=== PATIENT | male | born 1955 | race Caucasian/White ===

== ENCOUNTER 2016-05-02 10:16 | Inpatient (IN) | payer OTHER ==
[2016-05-02 10:29] VITALS: BMI 25.8
--- NOTE | 2016-05-02 12:10 | HP ---
COWS - Scale Resting Pulse: 0= [place] 80 or Below Sweatin=Flushed/Facial Moisture Restless Observation: 1= Difficult to Sit Still Pupil Size: 0= Normal to Room Light Bone or Joint Aches: 2= Severe Diffuse Aches Runny Nose/ Eye Tearin= Runny Nose/Eyes GI Upset > 30mins: 2= Nausea/Diarrhea Tremor Observation: 2= Slight Tremor Visible Yawning Observation: 2= >3x During Session Anxiety or Irritability: 2=Irritable/Anxious Goose Flesh Skin: 3=Piloerection COWS Score: 18 Admission ROS S - HPI Chief Complaint: I am here to detox. Allergies/Adverse Reactions: Allergies Allergy/AdvReac Type Severity Reaction Status Date / Time No Known Allergies Allergy Verified 05/02/16 11:06 History of Present Illness: pt is a 60yr old male with a history of heroin dependence seeking detox for treatment. Exam Limitations: No Limitations - Ebola screening Have you traveled outside of the country in the last 21 days: No Have you had contact with anyone from an Ebola affected area: No Have you been sick,other than usual withdrawal symptoms: No Do you have a fever: No - Review of Systems Constitutional: Chills, Diaphoresis, Loss of Appetite, Night Sweats, Changes in sleep, Unintentional Wgt. Loss EENT: reports: Tearing, Nose Congestion Respiratory: reports: No Symptoms reported Cardiac: reports: No Symptoms Reported, Lightheadedness GI: reports: Constipated, Poor Appetite, Poor Fluid Intake, Indigestion : reports: No Symptoms Reported Musculoskeletal: reports: Back Pain Integumentary: reports: Flushing, Sweating Neuro: reports: Headache, Tingling, Tremors Endocrine: reports: Excessive Sweating, Flushing, Intolerance to Cold, Intolerance to Heat Hematology: reports: No Symptoms Reported Psychiatric: reports: Judgement Intact, Mood/Affect Appropiate, Orientated x3, Agitated, Anxious Other Systems: Reviewed and Negative Patient History - Patient Medical History Hx Anemia: No Hx Asthma: No Hx Chronic Obstructive Pulmonary Disease (COPD): No Hx Cardiac Disorders: No Hx Hypertension: No Hx Hypercholesterolemia: No Hx Pacemaker: No HX Cerebrovascular Accident: No Hx Seizures: No Hx Dementia: No Hx Diabetes: No Hx Gastrointestinal Disorders: No Hx Liver Disease: No Hx Genitourinary Disorders: No Hx Sexually Transmitted Disorders: No Hx Renal Disease (ESRD): No Hx Thyroid Disease: No Hx Human Immunodeficiency Virus (HIV): No (NEGATIVE HX) Hx Hepatitis C: Yes (received treatment years ago. undetecable) Hx Depression: No Hx Suicide Attempt: No (denies) Hx Bipolar Disorder: No Hx Schizophrenia: No - Patient Surgical History Past Surgical History: Yes Hx Neurologic Surgery: No Hx Cataract Extraction: No Hx Cardiac Surgery: No Hx Lung Surgery: No Hx Breast Surgery: No Hx Breast Biopsy: No Hx Abdominal Surgery: No Hx Appendectomy: No Hx Cholecystectomy: No Hx Genitourinary Surgery: No Hx Section: No Hx Orthopedic Surgery: No Other Surgical History: R knee ACL repair 15 yrs ago. Anesthesia Reaction: No - PPD History Previous Implant?: Yes Documented Results: Negative w/o proof Implanted On Prior [facility] Admission?: Yes PPD to be Administered?: Yes - Reproductive History Patient is a Female of Child Bearing Age (11 -55 yrs old): No - Smoking Cessation Smoking history: Former smoker Have you smoked in the past 12 months: No If you are a former smoker, when did you quit?: 36 yrs ago Hx Chewing Tobacco Use: No Initiated information on smoking cessation: No - Substance & Tx. History Hx Alcohol Use: No Hx Substance Use: Yes Substance Use Type: Heroin Hx Substance Use Treatment: Yes - Substances Abused Heroin Route: Inhalation Frequency: Daily Amount used: 8-10 bags Age of first use: 58 Date of Last Use: 05/02/16 Family Disease History - Family Disease History Family Disease History: Diabetes: Mother (), Other: Father (HTN- ) Admission Physical Exam S - Vital Signs Vital Signs: Vital Signs - 24 hr 05/02/16 10:26 Temperature 96.5 F L Pulse Rate 66 Respiratory 18 Rate Blood Pressure 103/62 - Physical General Appearance: Yes: Appropriately Dressed, Tremorous, Irritable, Sweating, Anxious HEENTM: Yes: Normal Voice Respiratory: Yes: Lungs Clear, Normal Breath Sounds, No Respiratory Distress Neck: Yes: No masses,lesions,Nodules Breast: Yes: Within Normal Limits Cardiology: Yes: Regular Rhythm, Regular Rate, S1, S2 Abdominal: Yes: Normal Bowel Sounds, Non Tender, Soft Genitourinary: Yes: Within Normal Limits Back: Yes: Normal Inspection Musculoskeletal: Yes: full range of Motion Extremities: Yes: Normal Capillary Refill, Normal Inspection, Non-Tender, Tremors Neurological: Yes: Fully Oriented, Alert, Normal Response Integumentary: Yes: Normal Color, Diaphoresis Lymphatic: Yes: Within Normal Limits - Diagnostic (1) Hepatitis C Current Visit: Yes Status: Chronic Qualifiers: Viral hepatitis chronicity: chronic Hepatic coma status: without hepatic coma Qualified Code(s): B18.2 - Chronic viral hepatitis C (2) Hypercholesterolemia Current Visit: Yes Status: Chronic (3) Hypertension Current Visit: Yes Status: Chronic Qualifiers: Hypertension type: essential hypertension Qualified Code(s): I10 - Essential (primary) hypertension (4) Opioid dependence with withdrawal Current Visit: Yes Status: Chronic Cleared for Admission [facility] - Detox or Rehab [facility] Level of Care: Medically Managed Detox Regimen/Protocol: Methadone [facility] Breath Alcohol Content Breath Alcohol Content: 0 Urine Drug Screen - Results Drug Screen Negative: No Urine Drug Screen Results: OPI-Opiates, MDMA-Ecstasy, OXY-Oxycodone
[2016-05-02] MEDS ORDERED: hydrOXYzine PAMOATE 50 MG CAPSULE (FP) PO PRN (12:19)
[2016-05-02] MEDS ORDERED: MAGNESIUM CITRATE 300 ML BOTTLE PO PRN (12:19)
[2016-05-02] MEDS ORDERED: P-EPHED 60MG/TRIPROLIDI 2.5MG TABLET PO PRN (12:19)
[2016-05-02] MEDS ORDERED: LOPERAMIDE HCL 2 MG CAPSULE PO PRN (12:19)
[2016-05-02] MEDS ORDERED: MAG HYDROX/AL HYDROX/SIMETH 30 ML UNIT-DOSE CUP PO PRN (12:19)
[2016-05-02] MEDS ORDERED: ACETAMINOPHEN 325 MG TABLET (FP) PO PRN (12:19)
[2016-05-02] MEDS ORDERED: MAGNESIUM HYDROX 2400MG/30ML ORAL SUSPENSION 30 ML CUP PO PRN (12:19)
[2016-05-02] MEDS ORDERED: IBUPROFEN 400 MG TABLET (FP) PO PRN (12:19)
[2016-05-02] MEDS ORDERED: MENTHOL/PHENOL 1 EACH UD MM PRN (12:19)
[2016-05-02] MEDS ORDERED: guaiFENesin/D-METHORPHAN HB 10 ML UNIT-DOSE CUPS PO PRN (12:19)
[2016-05-02] MEDS ORDERED: METHADONE HCL 10 MG TABLET (FOR DETOX USE ONLY) PO ONE ×2 (12:25→23:00)
[2016-05-02] MEDS: diazePAM 5 MG TABLET PO PRN ×3 (13:34→22:09)
[2016-05-02 16:30] LABS: URINE APPEARANCE CLEAR; URINE BILIRUBIN NEGATIVE (NEGATIVE); URINE BLOOD NEGATIVE (NEGATIVE); URINE COLOR YELLOW; URINE GLUCOSE (UA) 2+ (NEGATIVE); URINE KETONE NEGATIVE (NEGATIVE); URINE LEUK ESTERASE NEGATIVE (NEGATIVE); URINE NITRITE NEGATIVE (NEGATIVE); URINE PROTEIN NEGATIVE (NEGATIVE); URINE UROBILINOGEN NEGATIVE E.U./dl (0.2-1.0)
[2016-05-02] MEDS: THIAMINE HCL 100 MG TABLET (FP) PO SCH (22:08)
[2016-05-02] MEDS: diphenhydrAMINE HCL 50 MG CAPSULE PO PRN (22:09)
[2016-05-03] MEDS: diazePAM 5 MG TABLET PO PRN ×5 (04:22→23:10)
--- NOTE | 2016-05-03 08:52 | PN ---
BHS COWS - Scale Resting Pulse: 0= [place] 80 or Below Sweatin=Flushed/Facial Moisture Restless Observation: 1= Difficult to Sit Still Pupil Size: 0= Normal to Room Light Bone or Joint Aches: 2= Severe Diffuse Aches Runny Nose/ Eye Tearin= Runny Nose/Eyes GI Upset > 30mins: 2= Nausea/Diarrhea Tremor Observation of Outstretched Hands: 2= Slight Tremor Visible Yawning Observation: 1= 1-2x During Session Anxiety or Irritability: 2=Irritable/Anxious Goose Flesh Skin: 0=Smooth Skin COWS Score: 14 BHS Progress Note (SOAP) Subjective: sweating,anxiety,tremors,interrupted sleep,restless,muscle aches.Pt. has hx. of HTN & was on lisinopril Objective: 05/03/16 08:50 Vital Signs - 8 hr 05/03/16 05/03/16 03:37 06:20 Temperature 96.7 F L Pulse Rate 65 Respiratory 18 18 Rate Blood Pressure 144/88 Laboratory Tests 05/02/16 13:00 Urine Color Yellow Urine Appearance Clear Urine pH 7.0 Ur Specific [place] 1.017 Urine Protein Negative Urine Glucose (UA) 2+ H Urine Ketones Negative Urine Blood Negative Urine Nitrite Negative Urine Bilirubin Negative Urine Urobilinogen Negative Ur Leukocyte Esterase Negative u/a noted Assessment: 05/03/16 08:51 withdrawal sx. Plan: continue detox start lisinopril
[2016-05-03 09:20] LABS: ALBUMIN 3.7 g/dl (3.4-5.0); CALCIUM 9.3 mg/dL (8.5-10.1)
[2016-05-03 09:21] LABS: MCH 31.7 pg (25.7-33.7); MCHC 33.8 g/dl (32.0-35.9); MEAN CELL VOLUME 93.8 fl (80-96); MEAN PLT VOLUME 8.7 fl (7.5-11.1); PLATELET COUNT 292 K/MM3 (134-434); RDW 13.2 % (11.9-15.9)
[2016-05-03 09:23] LABS: BILIRUBIN,TOTAL 0.3 mg/dL (0.2-1.0); CREATININE 1.4 mg/dL (0.7-1.3); TOT PROT 6.9 g/dl (6.4-8.2)
[2016-05-03] MEDS ORDERED: METHADONE HCL 10 MG TABLET (FOR DETOX USE ONLY) PO ONE (10:00)
[2016-05-03] MEDS: LISINOPRIL 10 MG TABLET (FP) PO SCH (10:03)
[2016-05-03] MEDS: PRENATAL VITAMINS W/ FOLIC ACID TABLET (FP) PO SCH (10:03)
--- NOTE | 2016-05-03 10:50 | EKG ---
Test Reason : Blood Pressure : / mmHG Vent. Rate : 056 BPM Atrial Rate : 056 BPM P-R Int : 186 ms QRS Dur : 088 ms QT Int : 414 ms P-R-T Axes : 043 055 034 degrees QTc Int : 399 ms SINUS BRADYCARDIA EARLY REPOLARIZATION NO PREVIOUS ECGS AVAILABLE Confirmed by BROCK GANNON MD ([id number]) on 05/03/2016 10:49:26 AM Referred By: Minesh Quisep Confirmed By:BROCK GANNON MD
[2016-05-03] MEDS: diphenhydrAMINE HCL 50 MG CAPSULE PO PRN (22:17)
[2016-05-03] MEDS: THIAMINE HCL 100 MG TABLET (FP) PO SCH (22:17)
[2016-05-04] MEDS: diazePAM 5 MG TABLET PO PRN (04:25)
[2016-05-04 06:41] VITALS: BP 155/97; PULSE 74; TEMP 96.5
--- NOTE | 2016-05-04 08:44 | PN ---
S Progress Note Note: patient does not want to stay to completed detox because of family issues, advised of risksof signing out AMA and relapse/od and . patient will sign out ama.
--- NOTE | 2016-05-04 08:45 | DS ---
[facility] Detox Discharge Summary Admission Date: 05/02/16 Discharge Date: 05/04/16 - History Present History: Opioid Dependence Pertinent Past History: hep c +, anxiety, depression and insomnia - Physical Exam Results Vital Signs: Vital Signs Temperature 96.5 F L 05/04/16 06:40 Pulse Rate 74 05/04/16 06:40 Respiratory Rate 18 05/04/16 06:40 Blood Pressure 155/97 05/04/16 06:40 O2 Sat by Pulse Oximetry (%) Pertinent Admission Physical Exam Findings: withdrawawl sx - Treatment Hospital Course: Detox Protocol Followed - Medication Discharge Medications: Ambulatory Orders NK [No Known Home Medication] 01/19/16 - Diagnosis (1) Hepatitis C Current Visit: Yes Status: Chronic Qualifiers: Viral hepatitis chronicity: chronic Hepatic coma status: without hepatic coma Qualified Code(s): B18.2 - Chronic viral hepatitis C (2) Opioid dependence with withdrawal Current Visit: Yes Status: Chronic - AMA Did Patient Leave Against Medical Advice: Yes
[2016-05-04] MEDS: PRENATAL VITAMINS W/ FOLIC ACID TABLET (FP) PO SCH (09:46)
[2016-05-04] MEDS: LISINOPRIL 10 MG TABLET (FP) PO SCH (09:46)
[2016-05-04] MEDS ORDERED: METHADONE HCL 5 MG TABLET (FOR DETOX USE ONLY) PO ONE (10:00)
[2016-05-05] MEDS ORDERED: METHADONE HCL 5 MG TABLET (FOR DETOX USE ONLY) PO ONE (10:00)
[2016-05-06] MEDS ORDERED: METHADONE HCL 10 MG TABLET (FOR DETOX USE ONLY) PO ONE (10:00)
[2016-05-07] MEDS ORDERED: METHADONE HCL 5 MG TABLET (FOR DETOX USE ONLY) PO ONE (06:00)
== END 2016-05-04 09:45 | disposition left against medical advice (07) | DRG 770 ==
LOC: YASAS 10:16 → Y3N 11:47
PROVIDERS: ADMIT Internal Medicine; ATTEND Internal Medicine
PROC: HZ2ZZZZ Detoxification Services for Substance Abuse Treatment (ICD-10-PCS; principal; 2016-05-04)
DX: F11.23 Opioid dependence with withdrawal (principal); B18.2 Chronic viral hepatitis C; I10 Essential (primary) hypertension; E78.00 Pure hypercholesterolemia, unspecified
CPT/HCPCS: 36415; 80053; 81003; 85027; 86593; 93005; 93010

== ENCOUNTER 2016-06-21 10:49 | Inpatient (IN) | payer OTHER ==
[2016-06-21 11:52] VITALS: BMI 27.1
--- NOTE | 2016-06-21 16:25 | HP ---
COWS - Scale Resting Pulse: 0= [place] 80 or Below Sweatin=Flushed/Facial Moisture Restless Observation: 3= Extraneous Movement Pupil Size: 2= Moderately Dilated Bone or Joint Aches: 2= Severe Diffuse Aches Runny Nose/ Eye Tearin= Runny Nose/Eyes GI Upset > 30mins: 3= Vomiting/Diarrhea Tremor Observation: 2= Slight Tremor Visible Yawning Observation: 2= >3x During Session Anxiety or Irritability: 2=Irritable/Anxious Goose Flesh Skin: 0=Smooth Skin COWS Score: 20 Admission ROS S - HPI Chief Complaint: i need help to stop using heroin Allergies/Adverse Reactions: Allergies Allergy/AdvReac Type Severity Reaction Status Date / Time No Known Allergies Allergy Verified 06/21/16 13:26 History of Present Illness: this 60 years old male with heroin dependence,withdrawal y=symptom,last detox to 05/04/16 anxiety anson loss longest period of sobriety 15 years Exam Limitations: No Limitations - Ebola screening Have you traveled outside of the country in the last 21 days: No (N) Have you had contact with anyone from an Ebola affected area: No Have you been sick,other than usual withdrawal symptoms: No Do you have a fever: No - Review of Systems Constitutional: Chills, Diaphoresis, Loss of Appetite, Malaise, Night Sweats, Changes in sleep, Weakness, Unintentional Wgt. Loss EENT: reports: Tearing, Nose Congestion Respiratory: reports: No Symptoms reported Cardiac: reports: No Symptoms Reported GI: reports: Diarrhea, Nausea, Vomiting, Abdominal cramping : reports: No Symptoms Reported Musculoskeletal: reports: Back Pain, Joint Pain, Muscle Pain, Joint Stiffness Integumentary: reports: Dryness Neuro: reports: Headache, Tremors Endocrine: reports: No Symptoms Reported Hematology: reports: No Symptoms Reported Psychiatric: reports: Anxious Patient History - Patient Medical History Hx Anemia: No Hx Asthma: No Hx Chronic Obstructive Pulmonary Disease (COPD): No Hx Cardiac Disorders: No Hx Hypertension: Yes (on meds) Hx Hypercholesterolemia: No Hx Pacemaker: No HX Cerebrovascular Accident: No Hx Seizures: No Hx Dementia: No Hx Diabetes: No Hx Gastrointestinal Disorders: No Hx Liver Disease: No Hx Genitourinary Disorders: No Hx Sexually Transmitted Disorders: No Hx Renal Disease (ESRD): No Hx Thyroid Disease: No Hx Human Immunodeficiency Virus (HIV): No (NEGATIVE HX last 2015) Hx Hepatitis C: Yes (received treatment years ago. undetecable) Hx Depression: No Hx Suicide Attempt: No Hx Bipolar Disorder: No Hx Schizophrenia: No Other Medical History: no suicidal,no homicidal - Patient Surgical History Past Surgical History: Yes Hx Neurologic Surgery: No Hx Cataract Extraction: No Hx Cardiac Surgery: No Hx Lung Surgery: No Hx Breast Surgery: No Hx Breast Biopsy: No Hx Abdominal Surgery: No Hx Appendectomy: No Hx Cholecystectomy: No Hx Genitourinary Surgery: No Hx Section: No Hx Orthopedic Surgery: Yes (right knee) Other Surgical History: R knee ACL repair 15 yrs ago. Anesthesia Reaction: No - PPD History Previous Implant?: Yes Documented Results: Negative w/proof Implanted On Prior [facility] Admission?: Yes Date: 05/04/16 Results: 0 mm PPD to be Administered?: No - Smoking Cessation Smoking history: Former smoker Have you smoked in the past 12 months: No If you are a former smoker, when did you quit?: 36 yrs ago Hx Chewing Tobacco Use: No Initiated information on smoking cessation: No 'Breaking Loose' booklet given: 06/21/16 - Substance & Tx. History Hx Alcohol Use: No Hx Substance Use: Yes Substance Use Type: Heroin Hx Substance Use Treatment: Yes ([facility] 05/02/16 to 05/04/16) - Substances Abused Heroin Route: Inhalation Frequency: Daily Amount used: 10 bags and up Age of first use: 58 Date of Last Use: 06/21/16 Family Disease History - Family Disease History Family Disease History: Diabetes: Mother (), Other: Father (HTN- ) Admission Physical Exam [facility] - Vital Signs Vital Signs: Vital Signs - 24 hr 06/21/16 11:50 Temperature 95.7 F L Pulse Rate 75 Respiratory 18 Rate Blood Pressure 133/87 - Physical General Appearance: Yes: Moderate Distress, Tremorous, Sweating, Anxious HEENTM: Yes: Normal ENT Inspection, Pharynx Normal, Nasal Congestion, Rhinorrhea Respiratory: Yes: Lungs Clear Neck: Yes: No masses,lesions,Nodules, Supple, Trachea in good position Breast: Yes: Within Normal Limits Cardiology: Yes: Within Normal Limits, Regular Rhythm, Regular Rate, S1, S2 Abdominal: Yes: Within Normal Limits, Normal Bowel Sounds, Non Tender, Flat, Soft Genitourinary: Yes: Within Normal Limits Back: Yes: Muscle Spasm Musculoskeletal: Yes: full range of Motion, Back pain, Joint Stiffness, Muscle Pain Extremities: Yes: Normal Range of Motion, Tremors Neurological: Yes: Within Normal Limits, engine inspector II-XII NML intact, Fully Oriented, Alert Integumentary: Yes: Dry Lymphatic: Yes: Within Normal Limits - Diagnostic (1) Hepatitis C Current Visit: No Status: Chronic Qualifiers: Viral hepatitis chronicity: chronic Hepatic coma status: without hepatic coma Qualified Code(s): B18.2 - Chronic viral hepatitis C (2) Opioid dependence with withdrawal Current Visit: No Status: Chronic (3) Anxiety Current Visit: Yes Status: Acute (4) Weight loss Current Visit: Yes Status: Acute (5) Hypertension Current Visit: Yes Status: Acute Cleared for Admission [facility] - Detox or Rehab [facility] Level of Care: Medically Managed Detox Regimen/Protocol: Methadone [facility] Breath Alcohol Content Breath Alcohol Content: 0 Urine Drug Screen - Results Drug Screen Negative: No Urine Drug Screen Results: OPI-Opiates, BZO-Benzodiazepines
[2016-06-21] MEDS ORDERED: guaiFENesin/D-METHORPHAN HB 10 ML UNIT-DOSE CUPS PO PRN (16:39)
[2016-06-21] MEDS ORDERED: diphenhydrAMINE HCL 50 MG CAPSULE PO PRN (16:39)
[2016-06-21] MEDS ORDERED: IBUPROFEN 400 MG TABLET (FP) PO PRN (16:39)
[2016-06-21] MEDS ORDERED: hydrOXYzine PAMOATE 25 MG CAPSULE (FP) PO PRN (16:39)
[2016-06-21] MEDS ORDERED: MAGNESIUM CITRATE 300 ML BOTTLE PO PRN (16:39)
[2016-06-21] MEDS ORDERED: P-EPHED 60MG/TRIPROLIDI 2.5MG TABLET PO PRN (16:39)
[2016-06-21] MEDS ORDERED: LOPERAMIDE HCL 2 MG CAPSULE PO PRN (16:39)
[2016-06-21] MEDS ORDERED: MAGNESIUM HYDROX 2400MG/30ML ORAL SUSPENSION 30 ML CUP PO PRN (16:39)
[2016-06-21] MEDS ORDERED: MENTHOL/PHENOL 1 EACH UD MM PRN (16:39)
[2016-06-21] MEDS ORDERED: ACETAMINOPHEN 325 MG TABLET (FP) PO PRN (16:39)
[2016-06-21] MEDS ORDERED: MAG HYDROX/AL HYDROX/SIMETH 30 ML UNIT-DOSE CUP PO PRN (16:39)
[2016-06-21] MEDS ORDERED: METHADONE HCL 10 MG TABLET (FOR DETOX USE ONLY) PO ONE ×2 (17:15→23:00)
[2016-06-21] MEDS: HYDROCHLOROTHIAZIDE 12.5 MG CAPSULE (FP) PO SCH (17:33)
[2016-06-21] MEDS: diazePAM 5 MG TABLET PO PRN ×2 (17:33→22:34)
[2016-06-21] MEDS: LISINOPRIL 10 MG TABLET (FP) PO SCH (17:33)
[2016-06-21 20:05] LABS: URINE APPEARANCE CLEAR; URINE BILIRUBIN NEGATIVE (NEGATIVE); URINE BLOOD NEGATIVE (NEGATIVE); URINE COLOR YELLOW; URINE GLUCOSE (UA) 2+ (NEGATIVE); URINE KETONE TRACE (NEGATIVE); URINE LEUK ESTERASE NEGATIVE (NEGATIVE); URINE NITRITE NEGATIVE (NEGATIVE); URINE PROTEIN NEGATIVE (NEGATIVE); URINE UROBILINOGEN NEGATIVE E.U./dl (0.2-1.0)
[2016-06-21] MEDS: THIAMINE HCL 100 MG TABLET (FP) PO SCH (22:34)
[2016-06-21] MEDS: CYCLOBENZAPRINE HCL 10 MG TABLET (FP) PO PRN (22:34)
[2016-06-21] MEDS: cloNIDine HCL 0.1 MG TABLET PO SCH (22:34)
[2016-06-22] MEDS ORDERED: METHADONE HCL 10 MG TABLET (FOR DETOX USE ONLY) PO ONE (10:00)
[2016-06-22 10:27] LABS: MCH 31.9 pg (25.7-33.7); MCHC 33.8 g/dl (32.0-35.9); MEAN CELL VOLUME 94.5 fl (80-96); MEAN PLT VOLUME 8.4 fl (7.5-11.1); PLATELET COUNT 318 K/MM3 (134-434); RDW 14.4 % (11.9-15.9); WHITE BLOOD COUNT 10.4 K/mm3 (4.0-10.0)
[2016-06-22] MEDS: PRENATAL VITAMINS W/ FOLIC ACID TABLET (FP) PO SCH (10:27)
[2016-06-22] MEDS: cloNIDine HCL 0.1 MG TABLET PO SCH ×2 (10:27→22:10)
[2016-06-22] MEDS: diazePAM 5 MG TABLET PO PRN ×2 (10:27→22:10)
[2016-06-22] MEDS: LISINOPRIL 10 MG TABLET (FP) PO SCH (10:30)
[2016-06-22] MEDS: HYDROCHLOROTHIAZIDE 12.5 MG CAPSULE (FP) PO SCH (10:30)
[2016-06-22 11:15] LABS: ALBUMIN 3.6 g/dl (3.4-5.0); ALK PHOS 76 U/L (45-117); ANION GAP 7 (8-16); BILIRUBIN,TOTAL 0.3 mg/dL (0.2-1.0); CALCIUM 8.9 mg/dL (8.5-10.1); CO2 32 mmol/L (21-32); CREATININE 0.9 mg/dL (0.7-1.3); GLUCOSE,RANDOM 106 mg/dL (74-106); SGOT/AST 28 U/L (15-37); SGPT/ALT 27 U/L (12-78); TOT PROT 6.7 g/dl (6.4-8.2)
--- NOTE | 2016-06-22 11:43 | PN ---
S COWS - Scale Resting Pulse: 0= [place] 80 or Below Sweatin= Chills/Flushing Restless Observation: 3= Extraneous Movement Pupil Size: 1= Pupils >than Normal Bone or Joint Aches: 2= Severe Diffuse Aches Runny Nose/ Eye Tearin= Runny Nose/Eyes GI Upset > 30mins: 3= Vomiting/Diarrhea Tremor Observation of Outstretched Hands: 2= Slight Tremor Visible Yawning Observation: 1= 1-2x During Session Anxiety or Irritability: 2=Irritable/Anxious Goose Flesh Skin: 0=Smooth Skin COWS Score: 17 S Progress Note (SOAP) Subjective: ALERT,IRRITABLE,ANXIOUS,INTERRUPTED SLEEP,TREMOR,PAIN IN THE BODY,JOINT AND BACK Objective: 06/22/16 11:41 Vital Signs Temperature 96.8 F L 06/22/16 10:00 Pulse Rate 76 06/22/16 10:00 Respiratory Rate 18 06/22/16 10:00 Blood Pressure 111/67 06/22/16 10:00 O2 Sat by Pulse Oximetry (%) EKG NSR,NORMAL ECG Laboratory Last Values WBC 10.4 K/mm3 (4.0-10.0) H 06/22/16 06:20 RBC 3.91 M/mm3 (4.00-5.60) L 06/22/16 06:20 Hgb 12.5 GM/dL (11.7-16.9) 06/22/16 06:20 Hct 36.9 % (35.4-49) 06/22/16 06:20 MCV 94.5 fl (80-96) 06/22/16 06:20 MCHC 33.8 g/dl (32.0-35.9) 06/22/16 06:20 RDW 14.4 % (11.9-15.9) 06/22/16 06:20 Plt Count 318 K/MM3 (134-434) 06/22/16 06:20 MPV 8.4 fl (7.5-11.1) 06/22/16 06:20 Sodium 142 mmol/L (136-145) 06/22/16 06:20 Potassium 4.0 mmol/L (3.5-5.1) 06/22/16 06:20 Chloride 103 mmol/L (98-107) 06/22/16 06:20 Carbon Dioxide 32 mmol/L (21-32) 06/22/16 06:20 Anion Gap 7 (8-16) L 06/22/16 06:20 BUN 17 mg/dL (7-18) D 06/22/16 06:20 Creatinine 0.9 mg/dL (0.7-1.3) D 06/22/16 06:20 Creat Clearance w eGFR > 60 (>60) 06/22/16 06:20 Random Glucose 106 mg/dL (74-106) 06/22/16 06:20 Calcium 8.9 mg/dL (8.5-10.1) 06/22/16 06:20 Total Bilirubin 0.3 mg/dL (0.2-1.0) 06/22/16 06:20 AST 28 U/L (15-37) 06/22/16 06:20 ALT 27 U/L (12-78) 06/22/16 06:20 Alkaline Phosphatase 76 U/L (45-117) 06/22/16 06:20 Total Protein 6.7 g/dl (6.4-8.2) 06/22/16 06:20 Albumin 3.6 g/dl (3.4-5.0) 06/22/16 06:20 Urine Color Yellow 06/21/16 17:59 Urine Appearance Clear 06/21/16 17:59 Urine pH 5.0 (5.0-8.0) D 06/21/16 17:59 Ur Specific [place] 1.030 (1.001-1.035) 06/21/16 17:59 Urine Protein Negative (NEGATIVE) 06/21/16 17:59 Urine Glucose (UA) 2+ (NEGATIVE) H 06/21/16 17:59 Urine Ketones Trace (NEGATIVE) H 06/21/16 17:59 Urine Blood Negative (NEGATIVE) 06/21/16 17:59 Urine Nitrite Negative (NEGATIVE) 06/21/16 17:59 Urine Bilirubin Negative (NEGATIVE) 06/21/16 17:59 Urine Urobilinogen Negative E.U./dl (0.2-1.0) 06/21/16 17:59 Ur Leukocyte Esterase Negative (NEGATIVE) 06/21/16 17:59 Assessment: 06/22/16 11:43 WITHDRAWAL SYMPTOM Plan: CONTINUE DETOX,2+ GLUCOSE IN URINE,INITIAL GLUCOSE IS 106,WILL DO BGM MONITORING BGM AC
--- NOTE | 2016-06-22 13:59 | CONSULT ---
[facility] Psychiatric Consult - Data Date of interview: 06/22/16 Admission source: [facility] Identifying data: Readmission to [facility] for this 60 y/o male seeking detox treatment for opioid dependence.Patient is ,a father of two ,domiciled currently unemployed and supported on unemployment benefits. Substance Abuse History: - Smoking Cessation. Smoking history: Former smoker. Have you smoked in the past 12 months: No. If you are a former smoker, when did you quit?: 36 yrs ago. Hx Chewing Tobacco Use: No. Initiated information on smoking cessation: No. 'Breaking Loose' booklet given: 06/21/16. - Substance & Tx. History. Hx Alcohol Use: No. Hx Substance Use: Yes. Substance Use Type: Heroin. Hx Substance Use Treatment: Yes ([facility] 05/02/16 to 05/04/16). - Substances Abused. Heroin. Route: Inhalation. Frequency: Daily. Amount used: 10 bags and up. Age of first use: 58. Date of Last Use: 06/21/16. Confirmed by patient. Medical History: Hypertension,hepatitis C and a history of orthosurgery for right knee injury 15 years ago (torn ACL). Psychiatric History: Patient denies. Physical/Sexual Abuse/Trauma History: Patient denies. Additional Comment: Urine Drug Screen Results: OPI-Opiates, BZO- Benzodiazepines.Noted. Mental Status Exam - Mental Status Exam Alert and Oriented to: Time, Place, Person Cognitive Function: Good Patient Appearance: Well Groomed (tattoos on forearms) Mood: Hopeful, Euthymic Affect: Appropriate, Normal Range Patient Behavior: Fatigued, Appropriate, Cooperative Speech Pattern: Clear Voice Loudness: Normal Thought Process: Goal Oriented Thought Disorder: Not Present Hallucinations: Denies Suicidal Ideation: Denies Homicidal Ideation: Denies Insight/Judgement: Fair Sleep: Fair Appetite: Good Muscle strength/Tone: Normal Gait/Station: Normal Psychiatric Findings - Problem List ([place] 1, 2,3) (1) Opioid dependence with withdrawal Current Visit: Yes Status: Acute (2) Hepatitis C Current Visit: Yes Status: Chronic Qualifiers: Viral hepatitis chronicity: chronic Hepatic coma status: without hepatic coma Qualified Code(s): B18.2 - Chronic viral hepatitis C (3) Hypertension Current Visit: Yes Status: Chronic - Initial Treatment Plan Initial Treatment Plan: Psychoeducation.Detoxification in progress.Observation.
--- NOTE | 2016-06-22 18:31 | EKG ---
Test Reason : Blood Pressure : / mmHG Vent. Rate : 066 BPM Atrial Rate : 066 BPM P-R Int : 178 ms QRS Dur : 090 ms QT Int : 410 ms P-R-T Axes : 064 051 042 degrees QTc Int : 429 ms NORMAL SINUS RHYTHM NORMAL ECG WHEN COMPARED WITH ECG OF 02-MAY-2016 13:46, NO SIGNIFICANT CHANGE WAS FOUND Confirmed by RAE NOLASCO MD ([id number]) on 06/22/2016 6:30:33 PM Referred By: Minesh Quispe Confirmed By:RAE NOLASCO MD
[2016-06-22] MEDS: THIAMINE HCL 100 MG TABLET (FP) PO SCH (22:10)
[2016-06-22] MEDS: CYCLOBENZAPRINE HCL 10 MG TABLET (FP) PO PRN (22:10)
[2016-06-23] MEDS ORDERED: METHADONE HCL 5 MG TABLET (FOR DETOX USE ONLY) PO ONE (10:00)
[2016-06-23] MEDS: HYDROCHLOROTHIAZIDE 12.5 MG CAPSULE (FP) PO SCH (10:08)
[2016-06-23] MEDS: cloNIDine HCL 0.1 MG TABLET PO SCH ×2 (10:08→22:04)
[2016-06-23] MEDS: LISINOPRIL 10 MG TABLET (FP) PO SCH (10:08)
[2016-06-23] MEDS: PRENATAL VITAMINS W/ FOLIC ACID TABLET (FP) PO SCH (10:08)
--- NOTE | 2016-06-23 15:46 | PN ---
S COWS - Scale Resting Pulse: 0= [place] 80 or Below Sweatin= Chills/Flushing Restless Observation: 3= Extraneous Movement Pupil Size: 0= Normal to Room Light Bone or Joint Aches: 1= Mild Discomfort Runny Nose/ Eye Tearin= Runny Nose/Eyes GI Upset > 30mins: 2= Nausea/Diarrhea Tremor Observation of Outstretched Hands: 2= Slight Tremor Visible Yawning Observation: 0= None Anxiety or Irritability: 2=Irritable/Anxious Goose Flesh Skin: 0=Smooth Skin COWS Score: 13 BHS Progress Note (SOAP) Subjective: Anxious, nausea, sweating, interrupted sleep Objective: 06/23/16 15:41 Last Vital Signs Temp Pulse Resp BP Pulse Ox 98.2 F 72 16 112/65 06/23/16 14:02 06/23/16 14:02 06/23/16 14:02 06/23/16 14:02 Laboratory Tests 06/21/16 06/22/16 06/22/16 17:59 06:20 06:20 WBC 10.4 H RBC 3.91 L Hgb 12.5 Hct 36.9 MCV 94.5 MCHC 33.8 RDW 14.4 Plt Count 318 MPV 8.4 Sodium 142 Potassium 4.0 Chloride 103 Carbon Dioxide 32 Anion Gap 7 L BUN 17 D Creatinine 0.9 D Creat Clearance w eGFR > 60 POC Glucometer Random Glucose 106 Calcium 8.9 Total Bilirubin 0.3 AST 28 ALT 27 Alkaline Phosphatase 76 Total Protein 6.7 Albumin 3.6 Urine Color Yellow Urine Appearance Clear Urine pH 5.0 D Ur Specific [place] 1.030 Urine Protein Negative Urine Glucose (UA) 2+ H Urine Ketones Trace H Urine Blood Negative Urine Nitrite Negative Urine Bilirubin Negative Urine Urobilinogen Negative Ur Leukocyte Esterase Negative RPR Titer 06/22/16 06/23/16 06:20 06:48 WBC RBC Hgb Hct MCV MCHC RDW Plt Count MPV Sodium Potassium Chloride Carbon Dioxide Anion Gap BUN Creatinine Creat Clearance w eGFR POC Glucometer 214 Random Glucose Calcium Total Bilirubin AST ALT Alkaline Phosphatase Total Protein Albumin Urine Color Urine Appearance Urine pH Ur Specific [place] Urine Protein Urine Glucose (UA) Urine Ketones Urine Blood Urine Nitrite Urine Bilirubin Urine Urobilinogen Ur Leukocyte Esterase RPR Titer Nonreactive Labs noted: UA with 2+ glucose; FS of 214mg/dl Assessment: 06/23/16 15:46 Withdrawal symptoms Noted with DMT2 Plan: Continue detox DMT2: change diet to diabetic, finger stick glucose ac meals, start metformin 500mg PO BID, repeat UA
[2016-06-23] MEDS: INSULIN SLIDING SCALE (NOVOLOG) 1 VIAL SQ SCH (16:38)
[2016-06-23] MEDS: diazePAM 5 MG TABLET PO PRN ×2 (17:04→22:05)
[2016-06-23] MEDS: metFORMIN HCL 500 MG TABLET (FP) PO SCH (17:04)
[2016-06-23] MEDS: CYCLOBENZAPRINE HCL 10 MG TABLET (FP) PO PRN (22:04)
[2016-06-23] MEDS: THIAMINE HCL 100 MG TABLET (FP) PO SCH (22:05)
[2016-06-24] MEDS: diazePAM 5 MG TABLET PO PRN ×3 (05:10→15:02)
[2016-06-24] MEDS: metFORMIN HCL 500 MG TABLET (FP) PO SCH ×2 (07:09→17:47)
[2016-06-24] MEDS: INSULIN SLIDING SCALE (NOVOLOG) 1 VIAL SQ SCH ×3 (07:10→17:26)
[2016-06-24 09:55] LABS: URINE APPEARANCE CLEAR; URINE BILIRUBIN NEGATIVE (NEGATIVE); URINE BLOOD NEGATIVE (NEGATIVE); URINE COLOR YELLOW; URINE GLUCOSE (UA) NEGATIVE (NEGATIVE); URINE KETONE NEGATIVE (NEGATIVE); URINE LEUK ESTERASE NEGATIVE (NEGATIVE); URINE NITRITE NEGATIVE (NEGATIVE); URINE PROTEIN NEGATIVE (NEGATIVE); URINE UROBILINOGEN NEGATIVE E.U./dl (0.2-1.0)
[2016-06-24] MEDS ORDERED: METHADONE HCL 5 MG TABLET (FOR DETOX USE ONLY) PO ONE (10:00)
--- NOTE | 2016-06-24 10:28 | PN ---
BHS Progress Note (SOAP) Subjective: interrupted sleep, sweats Objective: 06/24/16 10:27 Vital Signs Temperature 98.1 F 06/24/16 06:00 Pulse Rate 51 L 06/24/16 06:00 Respiratory Rate 18 06/24/16 06:00 Blood Pressure 119/69 06/24/16 06:00 O2 Sat by Pulse Oximetry (%) Laboratory Tests 06/21/16 06/22/16 06/22/16 17:59 06:20 06:20 WBC 10.4 H RBC 3.91 L Hgb 12.5 Hct 36.9 MCV 94.5 MCHC 33.8 RDW 14.4 Plt Count 318 MPV 8.4 Sodium 142 Potassium 4.0 Chloride 103 Carbon Dioxide 32 Anion Gap 7 L BUN 17 D Creatinine 0.9 D Creat Clearance w eGFR > 60 POC Glucometer Random Glucose 106 Calcium 8.9 Total Bilirubin 0.3 AST 28 ALT 27 Alkaline Phosphatase 76 Total Protein 6.7 Albumin 3.6 Urine Color Yellow Urine Appearance Clear Urine pH 5.0 D Ur Specific [place] 1.030 Urine Protein Negative Urine Glucose (UA) 2+ H Urine Ketones Trace H Urine Blood Negative Urine Nitrite Negative Urine Bilirubin Negative Urine Urobilinogen Negative Ur Leukocyte Esterase Negative RPR Titer 06/22/16 06/23/16 06/23/16 06:20 06:48 16:36 WBC RBC Hgb Hct MCV MCHC RDW Plt Count MPV Sodium Potassium Chloride Carbon Dioxide Anion Gap BUN Creatinine Creat Clearance w eGFR POC Glucometer 214 135 Random Glucose Calcium Total Bilirubin AST ALT Alkaline Phosphatase Total Protein Albumin Urine Color Urine Appearance Urine pH Ur Specific [place] Urine Protein Urine Glucose (UA) Urine Ketones Urine Blood Urine Nitrite Urine Bilirubin Urine Urobilinogen Ur Leukocyte Esterase RPR Titer Nonreactive 06/24/16 06:21 WBC RBC Hgb Hct MCV MCHC RDW Plt Count MPV Sodium Potassium Chloride Carbon Dioxide Anion Gap BUN Creatinine Creat Clearance w eGFR POC Glucometer 110 Random Glucose Calcium Total Bilirubin AST ALT Alkaline Phosphatase Total Protein Albumin Urine Color Urine Appearance Urine pH Ur Specific [place] Urine Protein Urine Glucose (UA) Urine Ketones Urine Blood Urine Nitrite Urine Bilirubin Urine Urobilinogen Ur Leukocyte Esterase RPR Titer 06/24/16 11:05 pt aox3 in nad ambulating Assessment: 06/24/16 10:27 withdrawala sx's 06/24/16 11:05 insomnia Plan: cont.detox increase fluids ambien 5mg hs
[2016-06-24] MEDS: PRENATAL VITAMINS W/ FOLIC ACID TABLET (FP) PO SCH (10:50)
[2016-06-24] MEDS: cloNIDine HCL 0.1 MG TABLET PO SCH ×2 (10:50→22:50)
[2016-06-24] MEDS: LISINOPRIL 10 MG TABLET (FP) PO SCH (10:52)
[2016-06-24] MEDS: HYDROCHLOROTHIAZIDE 12.5 MG CAPSULE (FP) PO SCH (10:52)
[2016-06-24] MEDS: CYCLOBENZAPRINE HCL 10 MG TABLET (FP) PO PRN (22:50)
[2016-06-24] MEDS: THIAMINE HCL 100 MG TABLET (FP) PO SCH (22:50)
[2016-06-24] MEDS: ZOLPIDEM TARTRATE 5 MG TABLET PO PRN (22:50)
[2016-06-25] MEDS: INSULIN SLIDING SCALE (NOVOLOG) 1 VIAL SQ SCH ×3 (06:17→17:33)
[2016-06-25] MEDS: metFORMIN HCL 500 MG TABLET (FP) PO SCH ×2 (07:57→17:32)
--- NOTE | 2016-06-25 09:50 | PN ---
BHS Progress Note (SOAP) Subjective: little sweats feeling better Objective: 06/25/16 09:49 Vital Signs Temperature 97.9 F 06/25/16 05:57 Pulse Rate 56 L 06/25/16 05:57 Respiratory Rate 18 06/25/16 05:57 Blood Pressure 119/68 06/25/16 05:57 O2 Sat by Pulse Oximetry (%) awake/alert ambulating no acute distress Assessment: 06/25/16 09:49 withdrawal sx Plan: continue detox increase fluids d/c in am
[2016-06-25] MEDS ORDERED: METHADONE HCL 10 MG TABLET (FOR DETOX USE ONLY) PO ONE (10:00)
[2016-06-25] MEDS: PRENATAL VITAMINS W/ FOLIC ACID TABLET (FP) PO SCH (10:56)
[2016-06-25] MEDS: HYDROCHLOROTHIAZIDE 12.5 MG CAPSULE (FP) PO SCH (10:57)
[2016-06-25] MEDS: cloNIDine HCL 0.1 MG TABLET PO SCH ×2 (10:57→21:38)
[2016-06-25] MEDS: LISINOPRIL 10 MG TABLET (FP) PO SCH (10:57)
--- NOTE | 2016-06-25 17:34 | PN ---
BHS Progress Note Note: RECEIVED NURSE INFORMED BGM TWICE DAILY INSULIN SLIDING SCALE TID CHANGE INSULIN SLIDING SCALE TO BID
[2016-06-25] MEDS: THIAMINE HCL 100 MG TABLET (FP) PO SCH (21:38)
[2016-06-25] MEDS: CYCLOBENZAPRINE HCL 10 MG TABLET (FP) PO PRN (21:38)
[2016-06-25] MEDS: ZOLPIDEM TARTRATE 5 MG TABLET PO PRN (21:38)
[2016-06-26] MEDS ORDERED: METHADONE HCL 5 MG TABLET (FOR DETOX USE ONLY) PO ONE (06:00)
[2016-06-26] MEDS: metFORMIN HCL 500 MG TABLET (FP) PO SCH (06:17)
[2016-06-26] MEDS: CYCLOBENZAPRINE HCL 10 MG TABLET (FP) PO PRN (06:18)
[2016-06-26] MEDS ORDERED: INSULIN SLIDING SCALE (NOVOLOG) 1 VIAL SQ SCH (07:00)
--- NOTE | 2016-06-26 08:47 | DS ---
[facility] Detox Discharge Summary Admission Date: 06/21/16 Discharge Date: 06/26/16 - History Present History: Opioid Dependence - Physical Exam Results Vital Signs: Vital Signs Temperature 98.3 F 06/26/16 06:46 Pulse Rate 85 06/26/16 06:46 Respiratory Rate 20 06/26/16 06:46 Blood Pressure 123/67 06/26/16 06:46 O2 Sat by Pulse Oximetry (%) - Treatment Hospital Course: Detox Protocol Followed, Detoxed Safely, Responded well, Discharged Condition Good - Medication Discharge Medications: Ambulatory Orders Hydrochlorothiazide [Hctz -] 12.5 mg PO DAILY 06/21/16 Lisinopril [Prinivil] 10 mg PO DAILY 06/21/16 - Diagnosis (1) Anxiety Current Visit: Yes Status: Chronic (2) Opioid dependence with withdrawal Current Visit: Yes Status: Chronic (3) Hepatitis C Current Visit: Yes Status: Chronic Qualifiers: Viral hepatitis chronicity: chronic Hepatic coma status: without hepatic coma Qualified Code(s): B18.2 - Chronic viral hepatitis C (4) Hypertension Current Visit: Yes Status: Chronic Qualifiers: Hypertension type: essential hypertension Qualified Code(s): I10 - Essential (primary) hypertension - AMA Did Patient Leave Against Medical Advice: No
[2016-06-26 10:35] VITALS: BP 130/86; PULSE 67; TEMP 97.2
== END 2016-06-26 10:35 | disposition home or self-care (01) | DRG 773 ==
LOC: YASAS 10:49 → Y6N 14:08
PROVIDERS: ADMIT Internal Medicine; ATTEND Internal Medicine
PROC: HZ2ZZZZ Detoxification Services for Substance Abuse Treatment (ICD-10-PCS; principal; 2016-06-21)
DX: F11.23 Opioid dependence with withdrawal (principal); F41.9 Anxiety disorder, unspecified; B18.2 Chronic viral hepatitis C; I10 Essential (primary) hypertension; G47.00 Insomnia, unspecified; E11.9 Type 2 diabetes mellitus without complications; Z87.891 Personal history of nicotine dependence; Z87.898 Personal history of other specified conditions
CPT/HCPCS: 36415; 80053; 81003; 85027; 86593; 93005; 93010

== ENCOUNTER 2017-08-29 20:16 | Inpatient (IN) | payer OTHER ==
[2017-08-29] MEDS ORDERED: MELATONIN 5 MG TABLETS PO PRN (22:00)
--- NOTE | 2017-08-29 22:41 | HP ---
COWS - Scale Resting Pulse: 1= [place] 81-100 Sweatin= Chills/Flushing Restless Observation: 1= Difficult to Sit Still Pupil Size: 1= Pupils >than Normal Bone or Joint Aches: 1= Mild Discomfort Runny Nose/ Eye Tearin= Runny Nose/Eyes GI Upset > 30mins: 2= Nausea/Diarrhea Tremor Observation: 2= Slight Tremor Visible Yawning Observation: 0= None Anxiety or Irritability: 1=Feels Anxious/Irritable Goose Flesh Skin: 0=Smooth Skin COWS Score: 12 Admission ROS [facility] Chief Complaint: Here for heroin detox. Having withdrawal symptoms. Allergies/Adverse Reactions: Allergies Allergy/AdvReac Type Severity Reaction Status Date / Time No Known Allergies Allergy Verified 08/29/17 22:31 History of Present Illness: Hx opiate use beginning with prescription opiates in 40's and then transitioned to heroin around age 57. Was on prescribed Suboxone beginniong in May 2017 and filled last prescription in June. States only took a few Suboxone and none in the last 30 days. States not going back onto Suboxone. Exam Limitations: No Limitations - Ebola screening Have you traveled outside of the country in the last 21 days: No Have you had contact with anyone from an Ebola affected area: No Have you been sick,other than usual withdrawal symptoms: No Do you have a fever: Yes - Review of Systems Constitutional: Chills, Changes in sleep (Insomnia w/ difficulty staying assleep. Was taking meds.) EENT: reports: Blurred Vision (Corrective lenses.), Nose Congestion, Dental Problems (Poor condition. Denies pain. Chews and swallows w/o difficulty.) Respiratory: reports: No Symptoms reported Cardiac: reports: Other (Hx. hypertension and on Lisinopril.) GI: reports: Nausea, Indigestion (Occ gastric reflux - not on meds.) : reports: No Symptoms Reported Musculoskeletal: reports: Muscle Pain (r/t lifes' activity) Integumentary: reports: No Symptoms Reported Neuro: reports: Pre-Existing Deficit (Nerve damage (R) leg w/ some muscle atropy of calf.), Tremors Endocrine: reports: Other (Was diagnosed w/ borderline diabetes in past but controlled w/ diet.) Hematology: reports: No Symptoms Reported Psychiatric: reports: Orientated x3, Agitated (increased because of withdrawal) , Anxious (Because of withdrawal) Patient History - Patient Medical History Hx Anemia: No Hx Asthma: No Hx Chronic Obstructive Pulmonary Disease (COPD): No Hx Cardiac Disorders: No Hx Hypertension: Yes (on meds) Hx Hypercholesterolemia: No Hx Pacemaker: No HX Cerebrovascular Accident: No Hx Seizures: No Hx Dementia: No Hx Diabetes: No Hx Gastrointestinal Disorders: No Hx Liver Disease: No Hx Genitourinary Disorders: No Hx Sexually Transmitted Disorders: No Hx Renal Disease (ESRD): No Hx Thyroid Disease: No Hx Human Immunodeficiency Virus (HIV): No (NEGATIVE HX last 2015) Hx Hepatitis C: Yes (received treatment years ago. undetecable) Hx Depression: No Hx Suicide Attempt: No Hx Bipolar Disorder: No Hx Schizophrenia: No - Patient Surgical History Past Surgical History: Yes Hx Neurologic Surgery: No Hx Cataract Extraction: No Hx Cardiac Surgery: No Hx Lung Surgery: No Hx Breast Surgery: No Hx Breast Biopsy: No Hx Abdominal Surgery: No Hx Appendectomy: No Hx Cholecystectomy: No Hx Genitourinary Surgery: No Hx Section: No Hx Orthopedic Surgery: Yes (right knee) Other Surgical History: R knee ACL repair 15 yrs ago. Anesthesia Reaction: No - PPD History Previous Implant?: Yes Documented Results: Negative w/o proof Date: 06/23/16 Results: 0 mm PPD to be Administered?: Yes - Smoking Cessation Smoking history: Former smoker Have you smoked in the past 12 months: No If you are a former smoker, when did you quit?: 36 yrs ago Hx Chewing Tobacco Use: No Initiated information on smoking cessation: No - Substance & Tx. History Hx Alcohol Use: No Substance Use Type: Heroin, Tranquilizers (Was taking Valium for sleep and anxiety. No recent use. ) Hx Substance Use Treatment: Yes (Was on Suboxone for 3 months. Last refill ended 08/07 only took a few days) - Substances Abused Heroin Route: sniff Frequency: Daily Amount used: 6-8 bags Age of first use: 50 (Started on precription opiates at age 45.) Date of Last Use: 08/29/17 (2 pm) Family Disease History - Family Disease History Family Disease History: Diabetes: Mother (), Other: Father (HTN- ) Admission Physical Exam BHS - Physical General Appearance: Yes: Appropriately Dressed, Tremorous, Anxious HEENTM: Yes: EOMI, Hearing grossly Normal, Normocephalic, Normal Voice, LAUREN ( Pupils 3 mm) Respiratory: Yes: Lungs Clear, Normal Breath Sounds, No Respiratory Distress Neck: Yes: No masses,lesions,Nodules, Supple Breast: Yes: Breast Exam Deferred Cardiology: Yes: Regular Rhythm, Regular Rate, S1, S2 Abdominal: Yes: Non Tender, Flat, Soft, Increased Bowel Sounds Genitourinary: Yes: Within Normal Limits Back: Yes: Normal Inspection Musculoskeletal: Yes: full range of Motion, Gait Steady, Other ((R) calf muscle smaller than (L). Good strength.) Extremities: Yes: Normal Capillary Refill, Normal Range of Motion, Non-Tender, Tremors Neurological: Yes: mud boss II-XII NML intact, Fully Oriented, Alert, Motor Strength 5/5, Normal Response Integumentary: Yes: Normal Color, Dry, Warm Lymphatic: Yes: Within Normal Limits - Diagnostic (1) Anxiety Current Visit: Yes Status: Chronic (2) Hepatitis C Current Visit: No Status: Chronic Qualifiers: Viral hepatitis chronicity: chronic Hepatic coma status: without hepatic coma Qualified Code(s): B18.2 - Chronic viral hepatitis C (3) Hypertension Current Visit: Yes Status: Chronic Qualifiers: Hypertension type: essential hypertension Qualified Code(s): I10 - Essential (primary) hypertension (4) Opioid dependence with withdrawal Current Visit: Yes Status: Acute (5) Insomnia Current Visit: Yes Status: Acute Cleared for Admission [facility] - Detox or Rehab [facility] Level of Care: Medically Managed Detox Regimen/Protocol: Methadone [facility] Breath Alcohol Content Breath Alcohol Content: 0 Vital Signs - Vital Signs Vital Signs Refused: No Temperature: 97.6 F Temperature Source: Oral Pulse Rate: 81 Respiratory Rate: 18 Blood Pressure: 127/84 BP Location: Right Arm Blood Pressure Position: Sitting - Weight Weight: 177 lb Weight Measurement Method: Standing Scale - Bowel Function Bowel Movement: No Urine Drug Screen - Test Device Lot Number: [id number] - Control Is Test Valid: Yes - Results Drug Screen Negative: No Urine Drug Screen Results: OPI-Opiates
[2017-08-29] MEDS ORDERED: MENTHOL/PHENOL 1 EACH UD MM PRN (23:03)
[2017-08-29] MEDS ORDERED: MAG HYDROX/AL HYDROX/SIMETH 30 ML UNIT-DOSE CUP PO PRN (23:03)
[2017-08-29] MEDS ORDERED: LOPERAMIDE HCL 2 MG CAPSULE PO PRN (23:03)
[2017-08-29] MEDS ORDERED: guaiFENesin/D-METHORPHAN HB 10 ML UNIT-DOSE CUPS PO PRN (23:03)
[2017-08-29] MEDS ORDERED: MAGNESIUM CITRATE 300 ML BOTTLE PO PRN (23:03)
[2017-08-29] MEDS ORDERED: ACETAMINOPHEN 325 MG TABLET (FP) PO PRN (23:03)
[2017-08-29] MEDS ORDERED: MAGNESIUM HYDROX 2400MG/30ML ORAL SUSPENSION 30 ML CUP PO PRN (23:03)
[2017-08-29] MEDS ORDERED: IBUPROFEN 400 MG TABLET (FP) PO PRN (23:03)
[2017-08-29] MEDS ORDERED: hydrOXYzine PAMOATE 50 MG CAPSULE (FP) PO PRN (23:03)
[2017-08-29] MEDS ORDERED: P-EPHED 60MG/TRIPROLIDI 2.5MG TABLET PO PRN (23:03)
[2017-08-29 23:36] VITALS: BMI 26.1
[2017-08-30] MEDS ORDERED: METHADONE HCL 10 MG TABLET (FOR DETOX USE ONLY) PO ONE ×3 (00:03→23:00)
[2017-08-30] MEDS: diazePAM 5 MG TABLET PO PRN ×5 (00:36→22:11)
[2017-08-30] MEDS: PRENATAL VITAMINS W/ FOLIC ACID TABLET (FP) PO SCH (10:10)
[2017-08-30] MEDS: LISINOPRIL 10 MG TABLET (FP) PO SCH (10:10)
[2017-08-30 10:17] LABS: HEMATOCRIT 36.3 % (35.4-49); HEMOGLOBIN 12.2 GM/dL (11.7-16.9); MCH 30.7 pg (25.7-33.7); MCHC 33.5 g/dl (32.0-35.9); MEAN CELL VOLUME 91.4 fl (80-96); MEAN PLT VOLUME 7.9 fl (7.5-11.1); PLATELET COUNT 332 K/MM3 (134-434); RBC 3.97 M/mm3 (4.00-5.60); RDW 13.1 % (11.9-15.9); WHITE BLOOD COUNT 8.2 K/mm3 (4.0-10.0)
[2017-08-30 10:18] LABS: URINE APPEARANCE TURBID; URINE BILIRUBIN NEGATIVE (<2.0 mg/dL); URINE BLOOD NEGATIVE (NEGATIVE); URINE COLOR AMBER; URINE GLUCOSE (UA) NEGATIVE (NEGATIVE); URINE KETONE NEGATIVE (NEGATIVE); URINE LEUK ESTERASE NEGATIVE (NEGATIVE); URINE NITRITE NEGATIVE (NEGATIVE); URINE PROTEIN NEGATIVE (NEGATIVE)
[2017-08-30 10:53] LABS: CHLORIDE 106 mmol/L (98-107); POTASSIUM 4.2 mmol/L (3.5-5.1); SODIUM 141 mmol/L (136-145)
[2017-08-30 11:14] LABS: ALK PHOS 78 U/L (45-117); ANION GAP 5 (8-16); BILIRUBIN,TOTAL 0.2 mg/dL (0.2-1.0); BLOOD UREA NITROGEN 13 mg/dL (7-18); CALCIUM 7.9 mg/dL (8.5-10.1); CO2 30 mmol/L (21-32); CREATININE 0.9 mg/dL (0.7-1.3); GLUCOSE,RANDOM 127 mg/dL (74-106); SGOT/AST 17 U/L (15-37); SGPT/ALT 23 U/L (12-78)
--- NOTE | 2017-08-30 12:42 | CONSULT ---
[facility] Psychiatric Consult - Data Date of interview: 08/30/17 Admission source: [facility] Identifying data: Another admission to [facility] for this 62 y/o male seeking detox treatment on for opioid dependence.Patient is ,a father of two,domiciled and reportedly employed. Substance Abuse History: Confirmed by patient in this interview.Smoking history : Former smoker. Have you smoked in the past 12 months: No. If you are a former smoker, when did you quit?: 36 yrs ago. Hx Chewing Tobacco Use: No. Initiated information on smoking cessation: No. - Substance & Tx. History. Hx Alcohol Use: No. Substance Use Type: Heroin, Tranquilizers (Was taking Valium for sleep and anxiety. No recent use. ). Hx Substance Use Treatment: Yes (Was on Suboxone for 3 months. Last refill ended 08/07 only took a few days). - Substances Abused. Heroin. Route: sniff. Frequency: Daily. Amount used: 6 -8 bags. Age of first use: 50 (Started on precription opiates at age 45.). Date of Last Use: 08/29/17 (2 pm) Medical History: GERD,diabetes mellitus (diet-controlled),hypertension, hepatitis C and a history of orthosurgery for right knee injury 15 years ago ( torn ACL). Psychiatric History: Patient denies. Physical/Sexual Abuse/Trauma History: Patient denies. Additional Comment: Urine Drug Screen Results: OPI-Opiates.Noted. Mental Status Exam - Mental Status Exam Alert and Oriented to: Time, Place, Person Cognitive Function: Good Patient Appearance: Well Groomed Mood: Withdrawn Affect: Normal Range Patient Behavior: Fatigued, Cooperative (superficially cooperative) Speech Pattern: Clear Voice Loudness: Normal Thought Process: Intact, Goal Oriented Thought Disorder: Not Present Hallucinations: Denies Suicidal Ideation: Denies Insight/Judgement: Fair Sleep: Well Appetite: Good Muscle strength/Tone: Normal Gait/Station: Other (not observed ; patient supine for duration of interview) Psychiatric Findings - Problem List ([place] 1, 2,3) (1) Opioid dependence with withdrawal Current Visit: Yes Status: Acute - Initial Treatment Plan Initial Treatment Plan: Psychoeducation.Detoxification.Observation.
--- NOTE | 2017-08-30 13:25 | PN ---
S Progress Note (SOAP) Subjective: alert,irritable,anxious,interrupted sleep, body aches Objective: 08/30/17 13:22 Vital Signs Temperature 98.1 F 08/30/17 10:00 Pulse Rate 73 08/30/17 10:00 Respiratory Rate 18 08/30/17 10:00 Blood Pressure 127/70 08/30/17 10:00 O2 Sat by Pulse Oximetry (%) Laboratory Last Values WBC 8.2 K/mm3 (4.0-10.0) 08/30/17 07:30 RBC 3.97 M/mm3 (4.00-5.60) L 08/30/17 07:30 Hgb 12.2 GM/dL (11.7-16.9) 08/30/17 07:30 Hct 36.3 % (35.4-49) 08/30/17 07:30 MCV 91.4 fl (80-96) 08/30/17 07:30 MCH 30.7 pg (25.7-33.7) 08/30/17 07:30 MCHC 33.5 g/dl (32.0-35.9) 08/30/17 07:30 RDW 13.1 % (11.9-15.9) 08/30/17 07:30 Plt Count 332 K/MM3 (134-434) 08/30/17 07:30 MPV 7.9 fl (7.5-11.1) 08/30/17 07:30 Sodium 141 mmol/L (136-145) 08/30/17 07:30 Potassium 4.2 mmol/L (3.5-5.1) 08/30/17 07:30 Chloride 106 mmol/L (98-107) 08/30/17 07:30 Carbon Dioxide 30 mmol/L (21-32) 08/30/17 07:30 Anion Gap 5 (8-16) L 08/30/17 07:30 BUN 13 mg/dL (7-18) D 08/30/17 07:30 Creatinine 0.9 mg/dL (0.7-1.3) 08/30/17 07:30 Creat Clearance w eGFR > 60 (>60) 08/30/17 07:30 Random Glucose 127 mg/dL (74-106) H 08/30/17 07:30 Calcium 7.9 mg/dL (8.5-10.1) L 08/30/17 07:30 Total Bilirubin 0.2 mg/dL (0.2-1.0) D 08/30/17 07:30 AST 17 U/L (15-37) D 08/30/17 07:30 ALT 23 U/L (12-78) 08/30/17 07:30 Alkaline Phosphatase 78 U/L (45-117) 08/30/17 07:30 Total Protein 6.0 g/dl (6.4-8.2) L 08/30/17 07:30 Albumin 3.0 g/dl (3.4-5.0) L 08/30/17 07:30 Urine Color Purvi 08/30/17 07:50 Urine Appearance Turbid 08/30/17 07:50 Urine pH 5.0 (5.0-8.0) 08/30/17 07:50 Ur Specific [place] 1.028 (1.001-1.035) 08/30/17 07:50 Urine Protein Negative (NEGATIVE) 08/30/17 07:50 Urine Glucose (UA) Negative (NEGATIVE) 08/30/17 07:50 Urine Ketones Negative (NEGATIVE) 08/30/17 07:50 Urine Blood Negative (NEGATIVE) 08/30/17 07:50 Urine Nitrite Negative (NEGATIVE) 08/30/17 07:50 Urine Bilirubin Negative (<2.0 mg/dL) 08/30/17 07:50 Urine Urobilinogen 2.0 mg/dL (0.2-1.0) 08/30/17 07:50 Ur Leukocyte Esterase Negative (NEGATIVE) 08/30/17 07:50 Assessment: 08/30/17 13:23 aox3 in no apparent distress no jvd no adventitious breath sounds + body aches full rom, ambulating in the unit with no distress, no joint erythema - withdrawal sx 08/30/17 13:24 Plan: continue detox NSAIDS prn for pain continue to monitor
[2017-08-30] MEDS ORDERED: THIAMINE HCL 100 MG TABLET (FP) PO SCH (22:00)
[2017-08-31] MEDS ORDERED: METHADONE HCL 10 MG TABLET (FOR DETOX USE ONLY) PO ONE (10:00)
[2017-08-31] MEDS: PRENATAL VITAMINS W/ FOLIC ACID TABLET (FP) PO SCH (10:09)
[2017-08-31] MEDS: diazePAM 5 MG TABLET PO PRN (10:09)
[2017-08-31] MEDS: LISINOPRIL 10 MG TABLET (FP) PO SCH (10:10)
--- NOTE | 2017-08-31 13:19 | DS ---
[facility] Detox Discharge Summary Admission Date: 08/29/17 Discharge Date: 08/31/17 - History Present History: Opioid Dependence Additional Comments: 62 years old male admitted 08/29/17 for opiate withdrawal sx insists to terminate opiate detox regimen "something happen to my family" strong recommend community self management support groups - Physical Exam Results Vital Signs: Vital Signs Temperature 97.7 F 08/31/17 09:15 Pulse Rate 73 08/31/17 09:15 Respiratory Rate 18 08/31/17 09:15 Blood Pressure 140/53 08/31/17 09:15 O2 Sat by Pulse Oximetry (%) Pertinent Admission Physical Exam Findings: opiate withdrawal sx Vital Signs Temperature 97.7 F 08/31/17 09:15 Pulse Rate 73 08/31/17 09:15 Respiratory Rate 18 08/31/17 09:15 Blood Pressure 140/53 08/31/17 09:15 O2 Sat by Pulse Oximetry (%) Laboratory Last Values WBC 8.2 K/mm3 (4.0-10.0) 08/30/17 07:30 RBC 3.97 M/mm3 (4.00-5.60) L 08/30/17 07:30 Hgb 12.2 GM/dL (11.7-16.9) 08/30/17 07:30 Hct 36.3 % (35.4-49) 08/30/17 07:30 MCV 91.4 fl (80-96) 08/30/17 07:30 MCH 30.7 pg (25.7-33.7) 08/30/17 07:30 MCHC 33.5 g/dl (32.0-35.9) 08/30/17 07:30 RDW 13.1 % (11.9-15.9) 08/30/17 07:30 Plt Count 332 K/MM3 (134-434) 08/30/17 07:30 MPV 7.9 fl (7.5-11.1) 08/30/17 07:30 Sodium 141 mmol/L (136-145) 08/30/17 07:30 Potassium 4.2 mmol/L (3.5-5.1) 08/30/17 07:30 Chloride 106 mmol/L (98-107) 08/30/17 07:30 Carbon Dioxide 30 mmol/L (21-32) 08/30/17 07:30 Anion Gap 5 (8-16) L 08/30/17 07:30 BUN 13 mg/dL (7-18) D 08/30/17 07:30 Creatinine 0.9 mg/dL (0.7-1.3) 08/30/17 07:30 Creat Clearance w eGFR > 60 (>60) 08/30/17 07:30 Random Glucose 127 mg/dL (74-106) H 08/30/17 07:30 Calcium 7.9 mg/dL (8.5-10.1) L 08/30/17 07:30 Total Bilirubin 0.2 mg/dL (0.2-1.0) D 08/30/17 07:30 AST 17 U/L (15-37) D 08/30/17 07:30 ALT 23 U/L (12-78) 08/30/17 07:30 Alkaline Phosphatase 78 U/L (45-117) 08/30/17 07:30 Total Protein 6.0 g/dl (6.4-8.2) L 08/30/17 07:30 Albumin 3.0 g/dl (3.4-5.0) L 08/30/17 07:30 Urine Color Purvi 08/30/17 07:50 Urine Appearance Turbid 08/30/17 07:50 Urine pH 5.0 (5.0-8.0) 08/30/17 07:50 Ur Specific [place] 1.028 (1.001-1.035) 08/30/17 07:50 Urine Protein Negative (NEGATIVE) 08/30/17 07:50 Urine Glucose (UA) Negative (NEGATIVE) 08/30/17 07:50 Urine Ketones Negative (NEGATIVE) 08/30/17 07:50 Urine Blood Negative (NEGATIVE) 08/30/17 07:50 Urine Nitrite Negative (NEGATIVE) 08/30/17 07:50 Urine Bilirubin Negative (<2.0 mg/dL) 08/30/17 07:50 Urine Urobilinogen 2.0 mg/dL (0.2-1.0) 08/30/17 07:50 Ur Leukocyte Esterase Negative (NEGATIVE) 08/30/17 07:50 RPR Titer Nonreactive (NONREACTIVE) 08/30/17 07:30 lab noted - Treatment Hospital Course: Detox Protocol Followed, Responded well Patient has Accepted a Rehab Referral to: community self support groups - Medication Discharge Medications: Ambulatory Orders Hydrochlorothiazide [Hctz -] 12.5 mg PO DAILY 06/21/16 Lisinopril [Prinivil] 10 mg PO DAILY 06/21/16 Hydrochlorothiazide [Hctz -] 12.5 mg PO DAILY #60 cap 06/26/16 Lisinopril [Prinivil] 10 mg PO DAILY #60 tablet 06/26/16 metFORMIN HCL [Glucophage -] 500 mg PO BID@0700,1630 #60 tablet 06/26/16 - Diagnosis (1) Opioid dependence with withdrawal Current Visit: Yes Status: Acute (2) Hypertension Current Visit: Yes Status: Chronic Qualifiers: Hypertension type: essential hypertension Qualified Code(s): I10 - Essential (primary) hypertension (3) Hepatitis C Current Visit: No Status: Chronic Qualifiers: Viral hepatitis chronicity: chronic Hepatic coma status: without hepatic coma Qualified Code(s): B18.2 - Chronic viral hepatitis C - AMA Did Patient Leave Against Medical Advice: Yes
[2017-08-31 14:02] VITALS: BP 151/83; PULSE 82; TEMP 97.9
--- NOTE | 2017-08-31 22:44 | EKG ---
Test Reason : Blood Pressure : / mmHG Vent. Rate : 070 BPM Atrial Rate : 070 BPM P-R Int : 182 ms QRS Dur : 092 ms QT Int : 400 ms P-R-T Axes : 036 068 051 degrees QTc Int : 432 ms NORMAL SINUS RHYTHM NORMAL ECG WHEN COMPARED WITH ECG OF 21-JUN-2016 16:41, NO SIGNIFICANT CHANGE WAS FOUND Confirmed by AMY GARCIA MD ([id number]) on 08/31/2017 10:44:04 PM Referred By: Confirmed By:AMY GARCIA MD
[2017-09-01] MEDS ORDERED: METHADONE HCL 5 MG TABLET (FOR DETOX USE ONLY) PO ONE (10:00)
[2017-09-02] MEDS ORDERED: METHADONE HCL 5 MG TABLET (FOR DETOX USE ONLY) PO ONE (10:00)
[2017-09-03] MEDS ORDERED: METHADONE HCL 10 MG TABLET (FOR DETOX USE ONLY) PO ONE (10:00)
[2017-09-04] MEDS ORDERED: METHADONE HCL 5 MG TABLET (FOR DETOX USE ONLY) PO ONE (06:00)
== END 2017-08-31 13:12 | disposition left against medical advice (07) | DRG 770 ==
LOC: YASAS 20:16 → Y6N 22:39
PROVIDERS: ADMIT Surgery; ATTEND Surgery
PROC: HZ2ZZZZ Detoxification Services for Substance Abuse Treatment (ICD-10-PCS; principal; 2017-08-29)
DX: F11.23 Opioid dependence with withdrawal (principal); F41.9 Anxiety disorder, unspecified; I10 Essential (primary) hypertension; B18.2 Chronic viral hepatitis C; G47.00 Insomnia, unspecified; Z87.891 Personal history of nicotine dependence; Z87.898 Personal history of other specified conditions
CPT/HCPCS: 36415; 80053; 81003; 85027; 86593; 93005; 93010

== ENCOUNTER 2020-10-21 10:09 | Inpatient (IN) | payer OTHER ==
[2020-10-21 10:47] VITALS: BMI 25.1
[2020-10-21] MEDS ORDERED: MENTHOL/PHENOL 1 EACH UD MM PRN (12:07)
[2020-10-21] MEDS ORDERED: MAGNESIUM HYDROX 2400MG/30ML ORAL SUSPENSION 30 ML CUP PO PRN (12:07)
[2020-10-21] MEDS ORDERED: ACETAMINOPHEN 325 MG TABLET (FP) PO PRN ×2 (12:07)
[2020-10-21] MEDS ORDERED: MAG HYDROX/AL HYDROX/SIMETH 30 ML UNIT-DOSE CUP PO PRN (12:07)
[2020-10-21] MEDS ORDERED: methaDONE HCL 10 MG TABLET (FOR DETOX USE ONLY) PO ONE (12:07)
[2020-10-21] MEDS ORDERED: MAGNESIUM CITRATE 300 ML BOTTLE PO PRN (12:07)
[2020-10-21] MEDS ORDERED: METHOCARBAMOL 500 MG TABLET PO PRN (12:07)
[2020-10-21] MEDS ORDERED: BISMUTH SUBSALICYLATE 524 MG/30 ML PO PRN (12:07)
[2020-10-21] MEDS ORDERED: IBUPROFEN 400 MG TABLET (FP) PO PRN (12:07)
[2020-10-21] MEDS: THIAMINE HCL 100 MG TABLET (FP) PO SCH (22:28)
[2020-10-21] MEDS: MELATONIN 5 MG TABLETS PO SCH (22:28)
[2020-10-22] MEDS ORDERED: methaDONE HCL 10 MG TABLET (FOR DETOX USE ONLY) ONE (08:44)
[2020-10-22] MEDS: PRENATAL VITAMINS W/ FOLIC ACID TABLET (FP) PO SCH (10:34)
[2020-10-22] MEDS ORDERED: ONDANSETRON *ODT* 4 MG TABLET SL ONE (12:05)
[2020-10-22 14:58] LABS: HEMATOCRIT 38.5 % (35.4-49); HEMOGLOBIN 13.4 GM/dL (11.7-16.9); MCH 32.4 pg (25.7-33.7); MCHC 34.7 g/dl (32.0-35.9); MEAN CELL VOLUME 93.6 fl (80-96); MEAN PLT VOLUME 8.2 fl (7.5-11.1); PLATELET COUNT 330 10^3/uL (134-434); RBC 4.12 M/mm3 (4.00-5.60); WHITE BLOOD COUNT 10.3 K/mm3 (4.0-10.0)
[2020-10-22 15:10] LABS: CALCIUM 8.8 mg/dL (8.5-10.1)
[2020-10-22 15:11] LABS: ALBUMIN 3.8 g/dl (3.4-5.0)
[2020-10-22 15:14] LABS: CREATININE 0.7 mg/dL (0.55-1.3)
[2020-10-22 15:15] LABS: BILIRUBIN,TOTAL 0.4 mg/dL (0.2-1)
[2020-10-22] MEDS: cloNIDine HCL 0.1 MG TABLET PO PRN ×2 (18:20→22:29)
[2020-10-22] MEDS: MELATONIN 5 MG TABLETS PO SCH (22:29)
[2020-10-22] MEDS: THIAMINE HCL 100 MG TABLET (FP) PO SCH (22:29)
[2020-10-23 09:31] VITALS: BP 144/80; PULSE 88; TEMP 96.9
[2020-10-23] MEDS: PRENATAL VITAMINS W/ FOLIC ACID TABLET (FP) PO SCH (09:34)
[2020-10-23] MEDS ORDERED: methaDONE HCL 10 MG TABLET (FOR DETOX USE ONLY) PO ONE (10:00)
[2020-10-25] MEDS ORDERED: methaDONE HCL 10 MG TABLET (FOR DETOX USE ONLY) PO ONE (10:00)
== END 2020-10-23 09:43 | disposition left against medical advice (07) | DRG 770 ==
LOC: YASAS 10:09 → Y3N 12:59
PROVIDERS: ADMIT Allergy & Immunology; ATTEND Allergy & Immunology
DX: F11.23 Opioid dependence with withdrawal (principal); I10 Essential (primary) hypertension; B18.2 Chronic viral hepatitis C; Z87.891 Personal history of nicotine dependence
CPT/HCPCS: 36415; 80053; 85027; 86780; 93005; 93010; J0735; Q0162